=== PATIENT | female | born 1995 | race African-American/Black ===

== ENCOUNTER 2024-12-17 13:32 | Emergency (ER) | payer MEDICAID ==
[~2024-12-17] VITALS: Ht 172.7 cm; Wt 115.0 kg
[2024-12-17] MEDS: MIDAZOLAM HCL 2 MG/2 ML VIAL IM ONE (16:29)
[2024-12-17] MEDS: HALOPERIDOL LACTATE 5MG/ML VIAL IM ONE (16:29)
[2024-12-17 17:12] LABS: BASOPHILS % 0.4 % (0.0-2.0); EOSINOPHILS % 1.9 % (0.0-5.0); HEMATOCRIT. 32.6 % (36.0-48.0); HEMOGLOBIN. 10.6 g/dL (12.0-16.0); LYMPHOCYTES % 24.1 % (20.0-50.0); MEAN CORPUSCULAR HEMOGLOBIN 27.9 pg (28.0-32.0); MEAN CORPUSCULAR HGB CONC 32.4 g/dL (31.0-37.0); MEAN PLATELET VOLUME 7.1 fl (7.4-10.4); MONOCYTES % 6.4 % (2.0-8.0); NEUTROPHILS % 67.2 % (40.0-76.0); PLATELET 337 x1000/uL (130-400); RED BLOOD CELL COUNT 3.79 mill/uL (4.2-5.4); RED CELL DISTRIBUTION WIDTH 14.7 % (11.6-14.6); WHITE BLOOD COUNT 8.2 x1000/uL (4.5-11.0)
[2024-12-17 17:18] LABS: CHLORIDE 104 mEq/L (98-107); POTASSIUM 3.2 mEq/L (3.5-5.1); SODIUM 138 mEq/L (136-145)
[2024-12-17 17:19] LABS: CALCIUM 9.1 mg/dL (8.7-10.4); CARBON DIOXIDE 27 mEq/L (21-32)
[2024-12-17 17:24] LABS: CREATININE 0.7 mg/dL (0.6-1.0); ETHANOL BLOOD < 10 mg/dL (<10); GLUCOSE 81 mg/dL (70-105); UREA NITROGEN BLOOD 7 mg/dL (9-23)
[2024-12-17 17:26] LABS: ACETAMINOPHEN < 2 ug/mL (10-30)
[2024-12-17 17:32] LABS: HCG SCREEN NEGATIVE
[2024-12-18 05:17] LABS: CLARITY URINE CLOUDY (CLEAR); COLOR URINE YELLOW (YELLOW); GLUCOSE URINE NEGATIVE (NEGATIVE); KETONES URINE 3+ (NEGATIVE); LEUKOCYTE ESTERASE URINE NEGATIVE (NEGATIVE); NITRITE URINE NEGATIVE (NEGATIVE); OCCULT BLOOD URINE NEGATIVE (NEGATIVE); PROTEIN URINE TRACE (NEGATIVE); SPECIFIC GRAVITY URINE 1.024 (1.005-1.030)
[2024-12-18 05:42] LABS: *AMPHETAMINES SCREEN URINE PRESUMPTIVE POSITIVE (NEGATIVE); *BARBITURATES SCREEN URINE NEGATIVE (NEGATIVE); *BENZODIAZEPINES SCREEN URINE PRESUMPTIVE POSITIVE (NEGATIVE); *COCAINE SCREEN URINE NEGATIVE (NEGATIVE); METHADONE URINE SCREEN NEGATIVE (NEGATIVE); OPIATES URINE SCREEN NEGATIVE (NEGATIVE)
[2024-12-18 05:43] LABS: CANNABINOID URINE SCREEN PRESUMPTIVE POSITIVE (NEGATIVE); ECSTASY MDMA SCREEN URINE CONF.TEST INDICATED (NEGATIVE); PHENCYCLIDINE URINE SCREEN NEGATIVE (NEGATIVE)
[2024-12-18 06:12] LABS: RBC URINE 0-2 /hpf (0-2); WBC URINE 0-2 /hpf (0-2)
[2024-12-18 06:13] LABS: BACTERIA URINE NONE SEEN; SQUAMOUS EPITHELIAL CELL URINE FEW /lpf (RARE/1+)
[2024-12-18] MEDS: ARIPIPRAZOLE 5MG TABLET PO SCH (11:45)
[2024-12-18] MEDS: ZIPRASIDONE MESYLATE 20MG/VIAL IM ONE (12:32)
[2024-12-18] MEDS: LORAZEPAM 2MG/ML UD SYRINGE IM NR ×2 (13:59→15:30)
[2024-12-18] MEDS: HALOPERIDOL LACTATE 5MG/ML VIAL IM ONE (15:25)
[2024-12-18] MEDS: LORAZEPAM 2MG/ML INJ IM ONE (15:25)
[2024-12-18] MEDS: DIPHENHYDRAMINE 50MG/ML VIAL IM PRN (15:37)
[2024-12-18 22:30] VITALS: BP 128/76; PULSE 90; RESP 16; TEMP 37.1; O2SAT 98
== END 2024-12-18 23:46 ==
LOC: ER 13:32
DX: R45.1 Restlessness and agitation (principal); Z20.822 Contact with and (suspected) exposure to COVID-19
CPT/HCPCS: 80048; 80307; 80329; 80320; 84703; 85025; 36415; 96372 ×2; 99291; 80305; 81003; 87426; J1630 ×2; J2250; J1200; J2060; J3486; Z7610 ×2; G0480